=== PATIENT | female | born 1950 ===

== ENCOUNTER 2025-11-15 10:53 | Outpatient (CLI) | payer MEDICARE ==
[2025-11-15 11:56] LABS: #Basophils 0.06 10x3/uL (0.0-0.2); #Eosinophils 0.10 10x3/uL (0.0-0.7); #Monocytes 0.80 10x3/uL (0.11-0.59); #Neutrophils 5.69 10x3/uL (1.40-6.50); %Basophils 0.7 % (0.0-1.0); %Eosinophils 1.1 % (0.0-10.0); %Lymphocytes 24.8 % (21.0-51.0); %Monocytes 9.0 % (0.0-10.0); %Neutrophils 64.0 % (42.0-75.0); Hematocrit 45.6 % (36.0-47.0); Hemoglobin 15.4 g/dL (12.0-16.0); Mean Corpuscular Hemoglobin 29.8 pg (27.0-31.0); Mean Corpuscular Volume 88.2 fL (78.0-98.0); Platelet Count 264 10x3/uL (130-400); Red Blood Cell (RBC) Count 5.17 mill/uL (4.20-5.40); White Blood Cell (WBC) Count 8.90 10x3/uL (4.8-10.8)
[2025-11-15 12:09] LABS: Anion Gap 14 mmol/L (10-20); BUN (Urea Nitrogen) 9 mg/dL (9.8-20.1); Calc. Creatinine Clearance 0 mL/min (70-130); Calcium 10.3 mg/dL (7.8-10.44); Carbon Dioxide 29 mmol/L (23-31); Chloride 93 mmol/L (98-107); Glucose 88 mg/dL (83-110); Potassium 3.4 mmol/L (3.5-5.1); Sodium 133 mmol/L (136-145)
== END 2025-11-15 10:54 | disposition home or self-care (01) ==
LOC: LABBT 10:53
PROVIDERS: ATTEND Orthopaedic Surgery Hand Surgery
DX: Z01.818 Encounter for other preprocedural examination (principal); M65.342 Trigger finger, left ring finger
CPT/HCPCS: 80048; 85025

== ENCOUNTER 2025-11-23 08:45 | Day surgery (SDC) | payer MEDICARE ==
[2025-11-15 11:11] VITALS: BMI 42.0
[2025-11-23] MEDS ORDERED: Lidocaine 1% PF 5 ML VIAL ONE (12:53)
[2025-11-23] MEDS ORDERED: Ondansetron PF 4 MG/2 ML Vial ONE (12:53)
[2025-11-23] MEDS ORDERED: Rocuronium Bromide 10 MG/ML (10ML VIAL) ONE (12:53)
[2025-11-23] MEDS ORDERED: fentaNYL PF 100 MCG/2 ML SYRINGE ONE (12:53)
[2025-11-23] MEDS ORDERED: PROPOFOL 20 ML ONE (12:53)
[2025-11-23] MEDS ORDERED: Bacitracin Zinc Ointment 30 gm TUBE ONE (13:44)
[2025-11-23] MEDS ORDERED: CEFAZOLIN 2 GM VIAL ONE (13:50)
[2025-11-23] MEDS ORDERED: Glycopyrrolate 0.2 MG/ML 5 ML SYRINGE ONE (14:21)
[2025-11-23] MEDS ORDERED: Ketorolac Tromethamine 30 MG (1 mL) VIAL ONE (14:42)
== END 2025-11-23 15:55 | disposition home or self-care (01) ==
LOC: SDC 08:45
PROVIDERS: ATTEND Orthopaedic Surgery Hand Surgery
PROC: 0LN80ZZ Release Left Hand Tendon, Open Approach (ICD-10-PCS; principal; 2025-11-23)
DX: M65.342 Trigger finger, left ring finger (principal); I10 Essential (primary) hypertension; G56.00 Carpal tunnel syndrome, unspecified upper limb
CPT/HCPCS: 26055; A6223; J0665; J1100; J1885; J2405; J2704